=== PATIENT | female | born 1985 | race Two or more races ===

== ENCOUNTER 2017-04-13 22:47 | Emergency (ER) | payer MEDICAID ==
[~2017-04-13] VITALS: Ht 162.6 cm; Wt 97.5 kg
[2017-04-13 23:07] VITALS: BP 116/70
== END 2017-04-14 02:37 | disposition left against medical advice (07) ==
LOC: EDBD → ER 22:50
DX: R42 Dizziness and giddiness (principal); R06.02 Shortness of breath; R51 Headache; R11.0 Nausea; Z53.21 Procedure and treatment not carried out due to patient leaving prior to being seen by health care provider

== ENCOUNTER 2017-04-15 14:38 | Emergency (ER) | payer MEDICAID ==
[~2017-04-15] VITALS: Ht 162.6 cm; Wt 95.3 kg
[2017-04-15 15:54] LABS: Basophils # (auto) 0 uL; Basophils % (auto) 0.4 % (0.0-2.0); Eosinophils # (auto) 0.1 uL; Eosinophils % (auto) 1.3 % (0.0-7.0); Hematocrit 37.3 % (36.0-46.0); Hemoglobin 12.2 g/dL (12.2-16.2); Lymphocytes # (auto) 2.2 uL; Lymphocytes % (auto) 24.2 % (10.0-50.0); Mean Corpuscular Hemoglobin 27.5 pg (28.0-32.0); Mean Corpuscular Hgb Conc. 32.6 g/dL (32.0-36.0); Mean Corpuscular Volume 84.2 fL (80.0-100.0); Monocytes # (auto) 0.6 uL; Neutrophils # (auto) 6.2 uL; Neutrophils % (auto) 67.1 % (37.0-80.0); Nucleated Red Blood Cells % 0.1 %; Platelet Count (auto) 317 10^3/uL (140-450); Red Blood Cells 4.43 10^6/uL (4.0-5.20); Red Cell Distribution Width 15.8 % (11.8-14.3); White Blood Cell 9.2 10^3/uL (4.4-10.8)
[2017-04-15 15:58] LABS: Urine Bacteria NONE SEEN /hpf (None Seen); Urine Blood 2+ /uL (Negative); Urine Mucus FEW (None Seen); Urine Specific Gravity 1.024 (1.001-1.035); Urine WBC 1 /hpf (0 - 5)
[2017-04-15 16:15] LABS: Alanine Aminotransferase 42 U/L (13-56); Albumin 3.6 g/dL (3.4-5.0); Alkaline Phosphatase 71 U/L (45-117); Anion Gap 7 (5-15); Aspartate Aminotransferase 23 U/L (15-37); BUN/Creatinine Ratio 17.5; Bilirubin, Total 0.4 mg/dL (0.2-1.0); Blood Urea Nitrogen 10 mg/dL (7-18); Calcium 8.5 mg/dL (8.5-10.1); Carbon Dioxide 26 mmol/L (21-32); Chloride 105 mmol/L (98-107); GFR African American 161 mL/min; GFR Non-African American 133 mL/min; Glucose 85 mg/dL (74-106); Potassium 3.3 mmol/L (3.5-5.1); Sodium 138 mmol/L (136-145); Total Protein 7.6 g/dL (6.4-8.2)
[2017-04-16 01:30] VITALS: BP 112/76
== END 2017-04-15 21:27 | disposition home or self-care (01) ==
LOC: ER 14:38
DX: R42 Dizziness and giddiness (principal); H53.8 Other visual disturbances
CPT/HCPCS: 36415; 70450; 71046; 80053; 81001; 81025; 84484; 85025; 93005

== ENCOUNTER 2021-05-23 19:33 | Emergency (ER) | payer MEDICAID ==
[~2021-05-23] VITALS: Ht 162.6 cm; Wt 99.8 kg
[2021-05-23 19:39] VITALS: BP 131/65
[2021-05-23 21:25] LABS: Urine Bacteria NONE SEEN /hpf (None Seen); Urine Blood 3+ /uL (Negative); Urine Mucus FEW (None Seen); Urine Specific Gravity 1.037 (1.001-1.035); Urine WBC 8 /hpf (0 - 5)
[2021-05-23 21:32] LABS: Basophils # (auto) 0.2 10 ^3/uL (0-0.2); Basophils % (auto) 1.8 % (0.0-2.0); Eosinophils # (auto) 0.1 10 ^3/uL (0-0.8); Eosinophils % (auto) 1.5 % (0.0-7.0); Hemoglobin 11.2 g/dL (12.2-16.2); Lymphocytes # (auto) 3.6 10 ^3/uL (0.4-5.4); Lymphocytes % (auto) 35.1 % (10.0-50.0); Mean Corpuscular Hemoglobin 24.6 pg (28.0-32.0); Mean Corpuscular Hgb Conc. 32.1 g/dL (32.0-36.0); Mean Corpuscular Volume 76.7 fL (80.0-100.0); Monocytes # (auto) 0.4 10 ^3/uL (0-1.3); Monocytes % (auto) 4.1 % (0.0-12.0); Neutrophils # (auto) 5.9 10 ^3/uL (1.6-8.6); Neutrophils % (auto) 57.5 % (37.0-80.0); Nucleated Red Blood Cells % 0.2 %; Red Blood Cells 4.57 10^6/uL (4.0-5.20); Red Cell Distribution Width 16.3 % (11.8-14.3); White Blood Cell 10.2 10^3/uL (4.4-10.8)
[2021-05-23 21:43] LABS: Potassium 3.2 mmol/L (3.5-5.1)
[2021-05-23 21:50] LABS: Albumin 3.5 g/dL (3.4-5.0); Bilirubin, Total 0.6 mg/dL (0.2-1.0); Calcium 8.4 mg/dL (8.5-10.1); Total Protein 7.5 g/dL (6.4-8.2)
== END 2021-05-23 22:31 | disposition home or self-care (01) ==
LOC: ER 19:33
DX: R10.31 Right lower quadrant pain (principal); Z32.02 Encounter for pregnancy test, result negative; Z87.442 Personal history of urinary calculi
CPT/HCPCS: 36415; 74176; 80053; 81001; 81025; 85025